=== PATIENT | male | born 1960 | race African-American/Black ===

== ENCOUNTER 2018-04-19 19:39 | Inpatient (IN) | payer BC ==
[~2018-04-19] VITALS: Ht 180.3 cm; Wt 104.5 kg
[~2018-04-19 19:39] MED LIST: ASPIRIN81 MG PO; GLUCOPHAGE1000 MG PO; HUMALOG 30100 UNITS/ SC; LANTUS INSULIN10 ML SC; MULTIPLE VITAMI1 TA1 PO; PRAVACHOL20 MG PO; ZESTORETIC 20/21 TAB PO
[2018-04-19 21:13] LABS: BASOPHILS 0.5 % (0-2); EOSINOPHILS 7.9 % (0-7); HEMATOCRIT 48.5 % (42.0-54.0); HEMOGLOBIN 17.1 g/dL (13.5-17.5); IMMATURE GRANULOCYTES 0.6 % (0-5); LYMPHOCYTES 35.1 % (15-50); MCH 32.2 pg (26.0-34.0); MCHC 35.3 g/dL (31.0-37.0); MCV 91.3 fL (80.0-100.0); MEAN PLATELET VOLUME 12.1 fL (7.4-10.4); MONOCYTES 8.2 % (2-11); NEUTROPHILS 47.7 % (40-80); PLATELET COUNT 151 10x3/uL (130-400); RBC 5.31 10x6/uL (4.20-6.10); RDW 14.1 % (11.5-14.5); WBC 8.5 10x3/uL (4.8-10.8)
[2018-04-19 21:21] LABS: APPEARANCE CLEAR (CLEAR); COLOR YELLOW (YELLOW); GLUCOSE 1000 mg/dL (NEGATIVE); KETONE NEGATIVE (NEGATIVE); NITRITE NEGATIVE (NEGATIVE); PROTEIN NEGATIVE (NEGATIVE); SPECIFIC GRAVITY 1.015 (1.005-1.020); UROBILINOGEN NORMAL (NORMAL)
[2018-04-19 21:22] LABS: BILIRUBIN NEGATIVE (NEGATIVE)
[2018-04-19 21:27] LABS: ALBUMIN 3.5 g/dL (3.4-5.0); ALKALINE PHOSPHATASE 94 U/L (46-116); ALT (SGPT) 26 U/L (10-68); BILIRUBIN - TOTAL 0.25 mg/dL (0.2-1.3); CALC OSMOLALITY 282 mosm/kg (275-300); CALCIUM 8.8 mg/dL (8.5-10.1); CARBON DIOXIDE 25.8 mmol/L (21.0-32.0); CHLORIDE - SERUM 102 mmol/L (98-107); CREATININE - SERUM 0.9 mg/dL (0.6-1.3); POTASSIUM - SERUM 3.9 mmol/L (3.5-5.1); SODIUM 138 mmol/L (136-145); UREA NITROGEN 8 mg/dL (7-18); eGFR NON AFRICAN AMERICAN > 90 mL/min (90-120)
[2018-04-19 21:28] LABS: GLUCOSE 260 mg/dL (74-106)
[2018-04-19 21:37] LABS: LIPASE 1743 U/L (73-393)
[2018-04-19 23:18] LABS: UDS - AMPHET NEGATIVE QUAL (NEGATIVE); UDS - BARB NEGATIVE QUAL (NEGATIVE); UDS - BENZO NEGATIVE QUAL (NEGATIVE); UDS - COCAINE NEGATIVE QUAL (NEGATIVE); UDS - OPIATE NEGATIVE QUAL (NEGATIVE); UDS - PCP NEGATIVE QUAL (NEGATIVE); UDS - THC NEGATIVE QUAL (NEGATIVE)
[2018-04-19 23:29] VITALS: BP 166/87
[2018-04-20] VITALS: BP 180/86
[2018-04-20] MEDS ORDERED: LISINOPRIL-HCTZ1 T13 PO (00:31)
[2018-04-20 01:52] VITALS: BP 180/86; BMI 32.1
[2018-04-20 04:00] VITALS: BP 192/92
[2018-04-20 08:41] VITALS: BP 153/87
[2018-04-20 11:58] VITALS: BP 148/87
[2018-04-20 12:15] VITALS: Ht 180.3 cm; Wt 104.5 kg
[2018-04-20 20:32] VITALS: BP 170/91
[2018-04-21 00:44] VITALS: BP 172/91
[2018-04-21 04:26] VITALS: BP 153/71
[2018-04-21 06:17] LABS: BASOPHILS 0.4 % (0-2); HEMATOCRIT 45.5 % (42.0-54.0); HEMOGLOBIN 15.6 g/dL (13.5-17.5); IMMATURE GRANULOCYTES 0.4 % (0-5); LYMPHOCYTES 34.7 % (15-50); MCH 31.5 pg (26.0-34.0); MCHC 34.3 g/dL (31.0-37.0); MCV 91.7 fL (80.0-100.0); MEAN PLATELET VOLUME 12.1 fL (7.4-10.4); NEUTROPHILS 48.5 % (40-80); PLATELET COUNT 142 10x3/uL (130-400); RBC 4.96 10x6/uL (4.20-6.10); RDW 14.5 % (11.5-14.5); WBC 7.5 10x3/uL (4.8-10.8)
[2018-04-21 06:50] LABS: ALBUMIN 3.2 g/dL (3.4-5.0); ALKALINE PHOSPHATASE 68 U/L (46-116); ALT (SGPT) 28 U/L (10-68); BILIRUBIN - TOTAL 0.66 mg/dL (0.2-1.3); CALCIUM 8.4 mg/dL (8.5-10.1); CARBON DIOXIDE 23.9 mmol/L (21.0-32.0); CHLORIDE - SERUM 106 mmol/L (98-107); CREATININE - SERUM 0.9 mg/dL (0.6-1.3); LIPASE 567 U/L (73-393); POTASSIUM - SERUM 3.8 mmol/L (3.5-5.1); PROTEIN - SERUM 6.3 g/dL (6.4-8.2); SODIUM 141 mmol/L (136-145); UREA NITROGEN 7 mg/dL (7-18); eGFR NON AFRICAN AMERICAN > 90 mL/min (90-120)
[2018-04-21 06:53] LABS: CALC OSMOLALITY 278 mosm/kg (275-300); GLUCOSE 102 mg/dL (74-106)
[2018-04-21 07:43] VITALS: BP 182/98
[2018-04-21 12:17] VITALS: BP 176/92
[2018-04-21] MEDS ORDERED: NICODERM C1 PATCH .3 TRANSDERM (14:43)
[2018-04-21] MEDS ORDERED: THIAMINE HCL50 MG PO (14:44)
[2018-04-21] MEDS ORDERED: THERAGRAN M [BK1 TAB PO (14:45)
== END 2018-04-21 15:52 | disposition home or self-care (01) | DRG 439 ==
LOC: D.ER 19:39 → D.EDHOLD 23:06 → D.MS 23:06
PROVIDERS: Emergency Medicine; Internal Medicine Nephrology
DX: K85.20 Alcohol induced acute pancreatitis without necrosis or infection (principal); F10.231 Alcohol dependence with withdrawal delirium; F17.213 Nicotine dependence, cigarettes, with withdrawal; I10 Essential (primary) hypertension; I25.10 Atherosclerotic heart disease of native coronary artery without angina pectoris; E11.9 Type 2 diabetes mellitus without complications; F41.9 Anxiety disorder, unspecified; E66.09 Other obesity due to excess calories; Z68.32 Body mass index [BMI] 32.0-32.9, adult